=== PATIENT | female | born 1985 | race Hispanic/Latino ===

== ENCOUNTER 2017-12-29 11:51 | Inpatient (IN) | payer OTHER, SELFPAY ==
[2017-12-29 12:31] VITALS: BMI 30.2
[2017-12-29 12:32] VITALS: BP 149/79
[2017-12-29] MEDS ORDERED: Promethazine HCl 25 MG/ML VIAL IM PRN (13:39)
[2017-12-29] MEDS ORDERED: Ondansetron HCl/PF 4 MG/2 ML Vial IVP PRN (13:39)
[2017-12-29] MEDS ORDERED: Calcium Gluconate 4.6 MEQ in Sodium Chloride 0.9% 100 ML IVPB PRN (14:06)
--- NOTE | 2017-12-29 14:13 | PDOC.EVN ---
Event Note - Event Note Event Note: FACULTY History and Physical 12/29/17 @ 1405 (ObGyn Diesel Technician Attending) Case reviewed with Dr Rocco Noguera (Resident party plan sales consultant) Patient of the Clinic here for PIH eval HPI: 32 yo HF [id number] s/p CS at the Med now with complaint of "dizziness" and bilateral lower leg swelling. Patient was nickolas at clinic and sent here for eval due to BPs 130/80s and sent for BP obs. Urione protein there was positive on dipstip UA. Ho HX CHTN or PIH with last delivery OB HX: CS x 4 Surgical Hx: CS x4 Allergies: none Past medical: negative Social: negative for RTOH, Drugs, tobacco PHYSICAL BPs in L&D 160s/80s ([id number]). Afebrile. NAD Postop normal exam Labs pending Assessment and plan: 1. One week post CS with michelle onset PIH 2. CMP, CBC, urine protein/CR pending 3. Start IV Mag Sulfate for severe range BPs 4. Oral Nifedipne protocol (per ACOG) if BPs >160/110 5. Admit ti L&D 6. Monitor UOP Full H&P pending from Dr Noguera
[2017-12-29] MEDS ORDERED: Magnesium Sulfate 20 GM/WATER 500 ML BAG IVPB SCH (14:15)
[2017-12-29] MEDS ORDERED: NIFEdipine 10 MG CAP PO SCH (14:15)
--- NOTE | 2017-12-29 14:18 | PDOC.LDHP ---
Labor and Delivery H&P Chief complaint: other (nausea and dizziness) HPI: Christine is a 32 yo who is postoperative day #8 today after delivering via r/p LTCS/BTL x4 @ 38.6 wks on 12/21/17 at [facility] (delivering Drs. Elaina Patle and Krystyna Vela). She presents from [facility] for dizziness, nausea, epigastric pain, and increased lower extremity edema x 3 days. BP checked in the clinic was 130's/80's and she had positive protein on her urine dip, which was not her baseline. Patient states that she had 2 episodes of vomiting twice yesterday as well. Other symptoms include increased urinary frequency and dysuria x 3 days. Denies fevers or chills. She also endorses mild shortness of breath and productive cough over the past 3 days. Denies headache, vision changes, or other associated symptoms. No history of PIH in this or prior pregnancies per patient. No history of chronic HTN. Grav: 6 Para: 5 OB History Details: Glucose intolerance this (1h gtt 145, 2h 170 on 3h GTT) Current complications: none Abnormal US findings: No Past Medical History: none Current medications: other (motrin) Previous surgical history: low tranverse CS (x4), other (knee operation at age 18) Social history: none - Physical Exam Abnormal vital signs: BP: 161-182/83-105 HR: 43-58 General: NAD, resting Heart: RRR Lungs: CTAB Abdomen: other (fundus 1cm below umbilicus, appropriately tender to palpation) Extremeties: pitting edema (1+) - Assessment 32 yo s/p scheduled rLTCS x4 w/ BTL @ 38.6 on 12/21/17, currently postoperative day #8, here with: - Plan -: 1) preeclampsia -Severe range pressures recorded on multiple checks -- will start IV magnesium/ protocol -CMP, CBC, UPC pending -No h/o PIH, cHTN or drug abuse -Will give oral nifedipine for BPs >160/110 2) Bradycardia -- symptomatic? -On review of previous VS from [facility] records, this is much lower than patient's baseline -Unclear if this is part of underlying hypertensive disease process or other issue -Stat EKG pending prior to initiation of Mg <Rocco Noguera - Last Filed: 12/29/17 14:10> - Plan Plan: magnesium for seizure prophylaxis, other (Faculty note: After admission, patient's pulse was noted to be bradycardic at 45 confirmed by bedside EKG. I have reviewed this with Dr Noguera. We will order echo for cardiac eval (this was recommended by Dr Reynolds-Cardiology). Dr Reynolds will come see her this afternoon. I ran into Dr Reynolds in the hospital hallway and we privately discussed the case protecting HIPPA.) <Valentín Henderson - Last Filed: 12/29/17 15:11> Allergies/Adverse Reactions: Allergies Allergy/AdvReac Type Severity Reaction Status Date / Time No Known Allergies Allergy Verified 12/29/17 12:24
[2017-12-29 14:29] LABS: #Basophils 0.1 thou/uL (0.0-0.2); #Eosinphils 0.2 thou/uL (0.0-0.7); #Lymphocytes 2.3 thou/uL (1.20-3.40); #Monocytes 0.3 thou/uL (0.11-0.59); #Neutrophils 3.1 thou/uL (1.40-6.50); %Basophils 1.2 % (0.0-1.0); %Eosinophils 3.3 % (0.0-10.0); %Lymphocytes 38.4 % (21.0-51.0); %Monocytes 4.7 % (0.0-10.0); %Neutrophils 52.4 % (42.0-75.0); Hemoglobin 11.5 g/dL (12.0-16.0); Mean Corpuscular HGB CONC 32.6 g/dL (32.0-36.0); Mean Corpuscular Volume 82.7 fl (81.0-99.0); Mean Platelet Volume 6.4 fL (7.4-10.4); Platelet Count 473 thou/uL (130-400); RBC Distribution Width 14.6 % (11.5-14.5); Red Blood Cell (RBC) Count 4.27 mill/uL (4.20-5.40); White Blood Cell (WBC) Count 5.9 thou/uL (4.8-10.8)
[2017-12-29] MEDS: Magnesium Sulfate 20 gm/500 ml 20 GM/500 ML BAG IVPB SCH ×2 (14:35→23:05)
[2017-12-29 14:52] LABS: ALT (SGPT) 33 U/L (8-55); AST (SGOT) 16 U/L (5-34); Albumin 3.2 g/dL (3.5-5.0); Alkaline Phosphatase 123 U/L (40-150); Anion Gap 12 mmol/L (10-20); BUN (Urea Nitrogen) 10 mg/dL (7.0-18.7); Bilirubin, Total 0.3 mg/dL (0.2-1.2); Calc. Creatinine Clearance 151 mL/min (70-130); Carbon Dioxide 24 mmol/L (22-29); Chloride 108 mmol/L (98-107); Estimated GFR-MDRD Greater than 90; Globulin 3.2 g/dL (2.4-3.5); Glucose 96 mg/dL (70-105); Magnesium 2.1 mg/dL (1.6-2.6); Potassium 4.1 mmol/L (3.5-5.1); Protein, Total 6.4 g/dL (6.0-8.3); Sodium 140 mmol/L (136-145)
[2017-12-29] MEDS: Dextrose 5%-Lactated Ringers 1,000 ML IV SCH (15:00)
[2017-12-29 15:44] LABS: Bilirubin Negative (Negative); Blood, Urine Negative (Negative); Clarity CLEAR (Clear); Glucose, Urine (Dipstick) Negative (Negative); Leukocyte Negative (Negative); Nitrite Negative (Negative); Protein, Urine (Dipstick) Negative (Neg-Trace); Urobilinogen 0.2 mg/dL (0.2-1.0); pH, Urine 7.5 (5.0-9.0)
[2017-12-29 15:46] LABS: Bacteria/HPF None Seen HPF (None Seen); Hyaline Casts/LPF 0-3 HYALINE CAST LPF (0-3 Hyaline); Pathc Cast-AUWi Flag 0.14 (0-2.49); RBC/HPF None Seen HPF (0-3); Squamous Epithelial 0-3 HPF (0-3); WBC/HPF None Seen HPF (0-3)
[2017-12-29 15:56] LABS: Creatinine, Urine 33.18 mg/dL (47-110); Protein, Urine Random Quant Less than 10 mg/dL
[2017-12-29] MEDS: Acetaminophen/Codeine 30-300mg Tablet PO PRN (16:53)
--- NOTE | 2017-12-29 16:55 | PDOC.EVN ---
Event Note - Event Note Event Note: Lab check: CMP ok, CBC ok, urine protein negative
--- NOTE | 2017-12-29 19:33 | CON ---
DATE OF CONSULTATION: 12/29/2017 REASON FOR CONSULTATION: Bradycardia. HISTORY OF PRESENT ILLNESS: Ms. Fernando is a very pleasant 32-year-old female, Kiswahili spe aking mostly, who comes to the hospital for nausea and dizziness. She is actually postoperative day #8. She delivered about a week ago. At the same time, she had bilateral tubal ligations. The baby was healthy at 38.5 weeks. She had an uneventful postoperative state; however, she developed nausea, epigastric pain, dizziness, and increased lower extremity edema for the last 3 days. She had a bloo d pressure check as well as in the 130s/80s. Urine dipstick was done and showed positive for protein s and she was admitted for this. She also was found to have dysuria for 3 days, but no fever or chil ls. She was admitted in concern for preeclampsia was there, so she was started on a magne sium drip. On initial evaluation, an EKG was done and she was noted to have sinus bradycardia, so Cardiology is being consulted for this. PAST MEDICAL HISTORY: None. PAST SURGICAL HISTORY: 1. Low transverse x4 in the past. 2. Knee surgery at 18. SOCIAL HISTORY: No alcohol, tobacco or drugs. FAMILY HISTORY: Noncontributory. REVIEW OF SYSTEMS: Twelve-point review of systems was done and it is all negative unless stated in t he history of present illness. PHYSICAL EXAMINATION: VITAL SIGNS: Blood pressure 160/83, heart rate 43, now at 58, temperature 98.7, respiratory rate 16, and satting 97% on room air. GENERAL: Awake, alert, oriented x3, in no distress. HEENT: Normocephalic, atraumatic. NECK: Supple. LUNGS: Clear. CARDIOVASCULAR: S1, S2, no S3, S4, no murmurs. ABDOMEN: Soft, positive bowel sounds. EXTREMITIES: 1+ edema. SKIN: Warm and dry. LABORATORY DATA AND IMAGING DATA: Laboratory work was reviewed. CBC was reviewed. Chemistries were reviewed. Chloride of 108 and albumin of 3.2. UA was negative. No proteins in the urine. The pos itive study was on dipstick. Echocardiogram was reviewed, normal LV function, normal diastolic function. ASSESSMENT AND PLAN: 1. Sinus bradycardia: EKG shows sinus bradycardia at 45. She is now sinus bradycardic at 58 and ho lding steady there. She has a normal looking echocardiogram. I do not think she is a candidate for pacemaker at this time. She may have just had a small vasovagal episode related to her nausea and vo miting. There are reports of bradycardia being the precursor of eclampsia or HELLP syndrome; however , she does not seem to fit this scenario at this time. I would favor this being just a vasovagal epi sode that made her slightly bradycardic, which is common to have after having episodes of nausea and vomiting. 2. Agree with therapies instituted by [facility] at this time and Dr. Henderson. 3. No other intervention plan at this time. Thank you for allowing me to participate in the care of your patient. We will follow.
[2017-12-30] MEDS ORDERED: Meclizine HCl 12.5 MG TAB PO PRN (00:05)
[2017-12-30] MEDS: Acetaminophen/Codeine 30-300mg Tablet PO PRN (02:49)
[2017-12-30] MEDS: Dextrose 5%-Lactated Ringers 1,000 ML IV SCH ×2 (02:50→18:49)
--- NOTE | 2017-12-30 07:22 | PDOC.EVN ---
Event Note - Event Note Event Note: L&D Progress note: Patient seen this AM by me at 0715 On IV MagSo4 for initial BP elevation . Patient admitted yestaerday s/ p RT CS...postop day 9 S. No HAs, doing well O. BPs vary from 110s/70s-130/80s Initial labs were normal Echo was wnl A/P: 1. PP PIH..no evidence severe range BPs at this time. Plan is for MgSo4 x 24 hours (this pm). Good UOP 2. Idiopathic and incidental sinus po: echo normal. D/W Colata...no specific meds or workup now 3. Probable DC home later today D/W Residents carton repairer
[2017-12-30] MEDS ORDERED: Magnesium Sulfate 20 gm/500 ml 20 GM/500 ML BAG ONE (09:05)
--- NOTE | 2017-12-30 19:36 | PDOC.CTH ---
Cardiology Progress Note - Subjective She is doing better. Her HR remains in the 70's but still feels dizzy. - Objective Vital Signs Temp Pulse Resp 12/30/17 15:59 98.3 F 77 18 12/30/17 11:00 98.3 F 77 18 Weight 154 lb - Physical Examination General/Neuro: alert & oriented x3, NAD Neck: no JVD present Lungs: unlabored respirations Heart: RRR Abdomen: NT/ND Extremities: + edema B (trace) - Labs Result Diagrams: 12/29/17 14:22 12/29/17 14:22 - Assessment/Plan 1. Bradycardia. 2. Possible pre eclmapsia PLAN: - No recurrence of bradycardia and normal LV function. - Will sign off. Please call with any questions.
[2017-12-31 08:19] VITALS: TEMP 98.4
--- NOTE | 2017-12-31 09:42 | PDOC.EVN ---
Event Note - Event Note Event Note: S: Pt doing well this morning. Currently asymptomatic without complaints. Specifically denies any headaches, vision changes, dizziness, nausea, shortness of breath, palpitations, or epigastric pain. States that the swelling in her legs has completely resolved. O: BPs WNL, ranging from the 110's/70's-130's/80s HR: 70's-80's Initial labs WNL Echo unremarkable A/P: 32 yo currently PP/postop day #10 s/p rLTCS/BTL admitted for severe range PP BPs. -S/p 24 hrs Mg with normotensive BPs and absence of symptoms over the last ~18 hours -HR back to normal with normal echo -- cards has signed off -OK for discharge home this morning -Would advise follow up with clinic early this week
--- NOTE | 2018-01-01 15:59 | DIS-2 ---
DATE OF ADMISSION: 12/29/2017 DATE OF DISCHARGE: 12/31/2017 DISCHARGING RESIDENT: Rocco Noguera M.D. DISCHARGE ATTENDING: Salud Bae M.D. PRIMARY DISCHARGE DIAGNOSES: 1. -induced hypertension. 2. Idiopathic sinus bradycardia, resolved. PROCEDURES: Echocardiogram on 12/29/2017 showed ejection fraction of 55%-60%, normal diastolic funct ion, trace mitral regurgitation, and mild tricuspid regurgitation. CONSULTATION: Dr. Torres with Cardiology. DISCHARGE MEDICATIONS: 1. [address] 5/325 mg to take 1-2 tabs by mouth q.4 hours as needed for pain. 2. Ferrous sulfate 325 mg daily. PERTINENT LABORATORY VALUES: Creatinine 0.6, AST 16, ALT 33, urine random total protein less than 10 . HISTORY OF PRESENT ILLNESS/HOSPITAL COURSE: Ms. Fernando is a pleasant 32-year-old 115. She w as postoperative day #8 on presentation after delivering via repeat low transverse C section x4/BTL a t 38.6 weeks on 12/21/2017 at [facility] by Dr. Elaina Patel and Dr. Krystyna salvador. She presented from the Clinic for dizziness, nausea, epigastric pain, and increased low er extremity edema for the past 3 days. Blood pressure in the clinic was 130s/80s and she had positi ve protein on her urine dip. The patient also endorses mild shortness of breath and productive cough over the past 3 days, but the remainder of the review of systems was negative. The patient specific ally denied any history of PIH in this or prior pregnancies and also denied any history of chronic hypertension. She stated that this was uncomplicated, but review of records did no te glucose intolerance with an abnormal 1 hour screen. Upon review of initial blood pressures, patient had multiple blood pressures noted to be in severe ra nges. We were still pending labs at this point, but proceeded with starting IV magnesium for seizure prophylaxis. We also gave oral nifedipine per protocol for persistent systolic blood pressure over 160. In addition, patient was noted to be significantly bradycardic to the low 40s in the first coup le of hours after admission. On review of previous from her [facility] rec ords, this was much lower than previous baseline. We obtained a stat EKG prior to initiating magnesi um infusion and this showed only sinus bradycardia. Dr. Torres with Cardiology was consulted who agr d to evaluate her and recommended obtaining a stat echocardiogram in case of a developing cardiomyo martinez. Echocardiogram reviewed later that afternoon was unremarkable. In addition, the patient's he art rate gradually improved into the 70s and 80s, it remained for the rest of her stay. We kept the patient on IV magnesium infusion per protocol for 24 hours. Her blood pressures gradually trended do wn and after the first couple of hours, never exceeded 130s/80s. She diuresed around 3 liters during the first 24 hours. Her symptoms also began resolving and on the day of discharge, the patient was entirely asymptomatic. Following 24 hours of IV magnesium, we kept the patient that afternoon and ov ernight for another approximately 18-20 hours of continued observation to ensure blood pressures main tained within normal ranges and symptoms did not return. However, because all of her initial labs we re normal, we did not feel the need to keep her for the full standard 72 hours of post-magnesium obse rvation. The patient was instructed to follow up with Clinic within 3-4 days after discharg e for reevaluation. DISPOSITION: Stable. DISCHARGE INSTRUCTIONS: 1. Location: Home. 2. Activity: As tolerated. 3. Diet: Regular. 4. Follow up with Clinic in 3-4 days.
--- NOTE | 2018-01-02 18:25 | EKG ---
Test Reason : Blood Pressure : / mmHG Vent. Rate : 045 BPM Atrial Rate : 045 BPM P-R Int : 186 ms QRS Dur : 074 ms QT Int : 434 ms P-R-T Axes : 054 015 032 degrees QTc Int : 375 ms Marked sinus bradycardia Abnormal ECG No previous ECGs available Confirmed by Nancy MARCUS ([id number]) on 01/02/2018 6:24:44 PM Referred By: CLAUDIO Confirmed By:Nancy MARCUS
== END 2017-12-31 12:29 | disposition home or self-care (01) | DRG 776 ==
LOC: L&D/OP 11:51 → L&D 14:54
PROVIDERS: ADMIT Obstetrics & Gynecology; ATTEND Obstetrics & Gynecology
DX: O13.5 Gestational [pregnancy-induced] hypertension without significant proteinuria, complicating the puerperium (principal); O99.43 Diseases of the circulatory system complicating the puerperium; I49.8 Other specified cardiac arrhythmias; Z98.891 History of uterine scar from previous surgery; Z87.39 Personal history of other diseases of the musculoskeletal system and connective tissue; Z98.51 Tubal ligation status
CPT/HCPCS: 36415; 51702; 80053; 81001; 82570; 83735; 84156; 85025; 93005; 93010; 93306; J3475